=== PATIENT | female | born 1945 | race Caucasian/White ===

== ENCOUNTER 2017-01-27 07:45 | Inpatient (IN) ==
[2017-01-26 11:37] LABS: Basophils # (Auto) 0.1 K/mcL (0.0-0.3); Basophils % (Auto) 0.8 % (0.0-2.0); Eosinophils # (Auto) 0.5 K/mcL (0.0-0.7); Eosinophils % (Auto) 5.5 % (0.0-7.0); Granulocytes % (Auto) 62.4 % (38.0-78.0); Lymphocytes # (Auto) 2.3 K/mcL (1.5-4.8); Lymphocytes % (Auto) 24.9 % (15.5-49.0); Mean Cell Volume 96.7 fL (80.0-100.0); Mean Corpuscular HGB Conc 33.9 g/dL (31.0-36.0); Mean Corpuscular Hemoglobin 32.8 pg (26.0-34.0); Monocytes # (Auto) 0.6 K/mcL (0.1-0.9); Monocytes % (Auto) 6.4 % (1.0-12.0); Platelet Count 345 K/mcL (140-440); RBC 4.12 M/mcL (4.00-5.20); Red Cell Distribution Width 12.8 % (11.5-14.5)
[2017-01-26 11:51] LABS: Blood Urea Nitrogen 14 mg/dl (8-23)
[2017-01-26 12:21] LABS: Appearance,Urine CLEAR; Bacteria,Urine 0 /hpf (0); Bilirubin,Urine NEG (NEG); Color,Urine YELLOW; Glucose,Urine (UA) NEGATIVE (NEG); Leukocyte Esterase,Urine 25 /uL (NEG); Mucus,Urine FEW /hpf (0); Nitrate,Urine NEG (NEG); Protein,Urine NEG (NEG); Specific Gravity,Urine 1.008 (1.000-1.035); Urine Blood NEG mg/dL (<0.03); Urine RBC < 1 /hpf (0-1); Urine Squamous Epithelial Cell < 1 /hpf (0-4); Urine Transitional Epi Cells < 1 /hpf (0-2); Urine WBC 4 /hpf (0-4); Urobilinogen,Urine NEG (NEG)
[~2017-01-27 07:45] MED LIST: KETOROLAC 30 MG, ROPIVACAINE HCL/PF 49.5 ML, EPINEPHrine 0.5 MG, 0.9 % SODIUM CHLORIDE ... IJ SCH; ceFAZolin 1 GM VIAL IV SCH
[2017-01-27] MEDS ORDERED: TRANEXAMIC ACID 1,000 MG/10 ML VIAL IV ONE ×2 (14:00→16:00)
[2017-01-27] MEDS ORDERED: PROPOFOL 200 MG/20 ML VIAL IV ONE (14:00)
[2017-01-27] MEDS ORDERED: ROPIVACAINE HCL/PF 30 ML VIAL IJ ONE (14:00)
[2017-01-27] MEDS ORDERED: PHENYLEPHRINE 10 MG/ML VIAL IV ONE (14:00)
[2017-01-27] MEDS ORDERED: DEXAMETHASONE 10 MG/ML VIAL IV ONE (14:00)
[2017-01-27] MEDS ORDERED: LIDOCAINE HCL/PF 100 MG/5 ML SYRINGE IV ONE (14:00)
[2017-01-27] MEDS ORDERED: ONDANSETRON 4 MG/2 ML VIAL IV ONE (14:00)
[2017-01-27] MEDS ORDERED: MIDAZOLAM 5 MG/5 ML VIAL IV ONE (14:00)
[2017-01-27] MEDS ORDERED: GENTAMICIN SULFATE 800 MG/20 ML VIAL IR ONE (14:39)
[2017-01-27] MEDS ORDERED: NALOXONE HCL 0.4 MG/ML VIAL IV PRN (15:41)
[2017-01-27] MEDS ORDERED: ONDANSETRON 4 MG/2 ML VIAL IV PRN ×2 (15:41→16:00)
[2017-01-27] MEDS ORDERED: FLUMAZENIL 0.1 MG/ML ML IV PRN (15:41)
[2017-01-27] MEDS ORDERED: LACTATED RINGERS 250 ML IV PRN (15:41)
[2017-01-27] MEDS ORDERED: ACETAMINOPHEN 1,000 MG/100 ML BOTTLE IV ONE (15:41)
[2017-01-27] MEDS ORDERED: IPRATROPIUM/ALBUTEROL 3 ML AMPUL.NEB NEB PRN (15:41)
[2017-01-27] MEDS ORDERED: MEPERIDINE 25 MG/ML SYRINGE IV PRN (15:41)
[2017-01-27] MEDS ORDERED: fentaNYL 100 MCG/2 ML VIAL IV PRN (15:41)
[2017-01-27] MEDS ORDERED: METHOCARBAMOL 1,000 MG/10 ML VIAL IV PRN (15:41)
[2017-01-27] MEDS ORDERED: BENZOCAINE/MENTHOL 1 LOZENGE PO PRN ×2 (15:41→16:00)
[2017-01-27] MEDS ORDERED: diphenhydrAMINE 50 MG/ML VIAL IV PRN (15:41)
[2017-01-27] MEDS ORDERED: LACTATED RINGERS 1,000 ML IV SCH (15:45)
[2017-01-27] MEDS ORDERED: POLYETHYLENE GLYCOL 3350 17 GM PACKET PO PRN (16:00)
--- NOTE | 2017-01-27 16:12 | Brief Operative Note ---
Date of procedure: 01/27/17 Pre-op diagnosis: RA left vknee Post-op diagnosis: same Procedure: L TKR PS attune with revision tibial base plate Grafts/Implants: Yes (see above) Anesthesia: GETA Complications: none Surgeon: Beny Mariano Special Delivery Mail Carrier: Cesar Muhammad Estimated blood loss (cc): 250 Tourniquet Time (Minutes): 78 Specimens Removed/Pathology: other (synovial bx) Condition: stable Disposition: PACU
[2017-01-27] MEDS: 0.9 % SODIUM CHLORIDE 1,000 ML IV SCH (17:00)
--- NOTE | 2017-01-27 17:02 | XRay Report ---
HISTORY: Reason for Exam:Post-op total knee FINDINGS: There is a well positioned total knee prosthesis. There are small clusters of bone chips seen on the AP view along both medial and lateral sides of the knee near the prosthetic tibial plateau. There is no evidence of a fracture. IMPRESSION: Well-positioned knee prosthesis Interpreted and Authenticated by: Jimenez Jernigan 01/27/17
[2017-01-27] MEDS: HYDROmorphone 2 MG/ML SYRINGE IV PRN ×3 (19:21→23:55)
[2017-01-27] MEDS: sulfaSALAzine 500 MG TABLET PO SCH (21:30)
[2017-01-27] MEDS: DOCUSATE SODIUM 100 MG CAPSULE PO SCH (21:37)
[2017-01-27] MEDS: amLODIPine 10 MG TABLET PO SCH (21:39)
[2017-01-27] MEDS: BACLOFEN 10 MG TABLET PO SCH (21:39)
[2017-01-27] MEDS: CYCLOBENZAPRINE 10 MG TABLET PO SCH (21:39)
[2017-01-27] MEDS: rOPINIRole 1 MG TABLET PO SCH (21:39)
[2017-01-27] MEDS: ENOXAPARIN 30 MG/0.3 ML SYRINGE SQ SCH (21:40)
[2017-01-27] MEDS: PREGABALIN 75 MG CAPSULE PO SCH (21:42)
[2017-01-27] MEDS: ceFAZolin 1 GM VIAL IV SCH (21:43)
[2017-01-27] MEDS: 0.9 % SODIUM CHLORIDE 10 ML SYRINGE IV SCH (21:43)
[2017-01-27] MEDS: morphine 15 MG TABLET PO PRN (21:57)
[2017-01-28] MEDS: HYDROmorphone 2 MG/ML SYRINGE IV PRN ×4 (04:24→19:58)
[2017-01-28] MEDS: morphine 15 MG TABLET PO PRN ×4 (04:24→17:57)
[2017-01-28] MEDS: 0.9 % SODIUM CHLORIDE 1,000 ML IV SCH ×2 (04:28→12:33)
[2017-01-28] MEDS: ceFAZolin 1 GM VIAL IV SCH (06:51)
[2017-01-28] MEDS: LEVOTHYROXINE 88 MCG TABLET PO SCH (06:51)
[2017-01-28] MEDS: 0.9 % SODIUM CHLORIDE 10 ML SYRINGE IV SCH ×3 (06:54→21:00)
--- NOTE | 2017-01-28 07:36 | Orthopedic Progress Note ---
Subjective Patient information: Note initiated : 01/28/17 at 7:34 am Service Date, if different from initiated Date: [] Patient: Soumya Montgomery 71 y/o F admitted on 01/27/17 for Left Total Knee Arthroplasty. Chief Complaint: [] Principal diagnosis: L knee arthritis POD1 Objective Vital signs: Vital Signs Temp Pulse Pulse Pulse Resp BP BP 01/28/17 07:20 95 H 01/28/17 07:13 98.4 F 93 H 16 134/72 01/28/17 04:00 98.0 F 87 12 110/61 01/27/17 23:35 97.4 F 96 H 12 103/56 01/27/17 19:58 97.7 F 91 H 12 138/75 01/27/17 18:58 86 132/82 01/27/17 18:38 82 140/83 01/27/17 18:08 80 139/83 01/27/17 17:53 82 129/77 01/27/17 17:38 90 144/100 01/27/17 17:20 97.7 F 18 148/89 01/27/17 17:05 86 16 144/74 01/27/17 17:02 97.4 F 86 16 137/82 01/27/17 17:00 81 16 137/82 01/27/17 16:55 82 16 150/82 01/27/17 16:50 82 18 133/77 01/27/17 16:45 86 20 130/84 01/27/17 16:40 83 14 127/73 01/27/17 16:35 15 124/71 01/27/17 16:30 20 122/66 01/27/17 16:25 98.1 F 84 12 124/71 01/27/17 12:00 98.2 F 16 171/81 01/27/17 08:00 98.0 F 101 H 14 138/82 01/27/17 07:45 98.0 F 101 H 14 138/82 Pulse Ox 01/28/17 07:20 94 01/28/17 07:13 92 01/28/17 04:00 91 01/27/17 23:35 93 01/27/17 19:58 96 01/27/17 18:58 94 01/27/17 18:38 96 01/27/17 18:08 96 01/27/17 17:53 07/25/17 17:38 01/27/17 17:20 95 01/27/17 17:05 95 01/27/17 17:02 01/27/17 17:00 95 01/27/17 16:55 94 01/27/17 16:50 94 01/27/17 16:45 95 01/27/17 16:40 93 01/27/17 16:35 96 01/27/17 16:30 98 01/27/17 16:25 01/27/17 12:00 94 01/27/17 08:00 01/27/17 07:45 95 Intake and Output 01/27/17 01/28/17 01/28/17 21:59 05:59 13:59 Intake Total 2099 / 2099 1490 / 1490 Output Total 675 / 675 53 / 53 Balance 1425 / 1425 1437 / 1437 Intake: IV 2099 / 2099 1000 / 1000 Sodium Chloride 0.9% 1, 1000 / 1000 000 ml @ 100 mls/hr IV . Q10H NORY Rx#:[id number] Lactated Ringers 1,000 ml 2000 / 2000 @ 20 mls/hr IV .Q24H NORY Rx#:[id number] Oral 490 / 490 Output: Drainage 53 / 53 Left Knee 53 / 53 Void Amount 525 / 525 Estimated Blood Loss 150 / 150 Other: Weight 281 lb Intake & Output: Intake & Output 01/27/17 01/28/17 01/28/17 21:59 05:59 13:59 Intake Total 2099 / 2099 1490 / 1490 Output Total 675 / 675 53 / 53 Balance 1425 / 1425 1437 / 1437 Weight 281 lb Intake: IV 2099 / 2099 1000 / 1000 Sodium Chloride 0.9% 1, 1000 / 1000 000 ml @ 100 mls/hr IV . Q10H NORY Rx#:[id number] Lactated Ringers 1,000 ml 2000 / 2000 @ 20 mls/hr IV .Q24H NORY Rx#:[id number] Oral 490 / 490 Output: Drainage 53 / 53 Left Knee 53 / 53 Void Amount 525 / 525 Estimated Blood Loss 150 / 150 Incision clean and dry: Yes Weight bearing status: as tolerated - Periperhal Pulses Peripheral pulses: 2+: dorsalis pedis (L) - Diagnostic Results Knee x-ray: image reviewed (well positioned TKR) - Labs CBC & BMP: 07/26/17 04:42 01/26/17 09:35 Labs: Orthopedic Labs 01/26/17 09:36 PT 13.0 INR 1.0 01/28/17 01/26/17 04:42 09:36 Hgb 10.5 L 13.5 Hct 31.1 L 39.8 Assessment and Plan (1) Total knee replacement status doing well . continue PT and lovenox Status: Acute
[2017-01-28] MEDS: DOCUSATE SODIUM 100 MG CAPSULE PO SCH ×2 (09:06→20:57)
[2017-01-28] MEDS: CYCLOBENZAPRINE 10 MG TABLET PO SCH ×2 (09:06→20:56)
[2017-01-28] MEDS: BACLOFEN 10 MG TABLET PO SCH ×2 (09:06→20:56)
[2017-01-28] MEDS: PREGABALIN 150 MG CAPSULE PO SCH (09:06)
[2017-01-28] MEDS: LOSARTAN 50 MG TABLET PO SCH (09:07)
[2017-01-28] MEDS: buPROPion 150 MG TAB.XL.24H PO SCH (09:07)
[2017-01-28] MEDS: sulfaSALAzine 500 MG TABLET PO SCH ×2 (09:07→20:57)
[2017-01-28] MEDS: DULoxetine 30 MG CAPSULE PO SCH (09:07)
[2017-01-28] MEDS: ENOXAPARIN 30 MG/0.3 ML SYRINGE SQ SCH ×2 (09:08→20:59)
[2017-01-28] MEDS: TRIAMTERENE/HYDROCHLOROTHIAZID 1 TABLET PO SCH (09:10)
[2017-01-28] MEDS: CALCIUM CARB PO SCH (09:10)
[2017-01-28] MEDS: MAG OX PO SCH (09:10)
[2017-01-28] MEDS: ZINC SULF PO SCH (09:10)
--- NOTE | 2017-01-28 13:45 | Surgical Pathology Report ---
HISTOLOGY SPECIMEN MICROSCOPIC DIAGNOSIS SYNOVIUM, LEFT KNEE, BIOPSY: -- CHRONIC SYNOVITIS, MILD. (DMT:berta) PROCEDURAL IMPRESSION Left knee arthritis. GROSS DESCRIPTION Received in formalin labeled left knee synovial, are two fragments of fibrous yellow-desouza to pink-desouza fatty tissue ranging in size from 2.0 x 1.9 x 0.6 cm up to 4.5 x 0.9 x 0.5 cm. The fragments are serially sectioned with credit and collections representative sections submitted - one cassette. (KGW:berta) Electronically Signed by: Jerald Bello M.D.
[2017-01-28] MEDS ORDERED: oxyCODONE 10 MG TAB.ER.12H PO ONE (14:30)
[2017-01-28] MEDS ORDERED: oxyCODONE 10 MG TAB.ER.12H PO SCH (14:30)
[2017-01-28] MEDS: amLODIPine 10 MG TABLET PO SCH (20:55)
[2017-01-28] MEDS: rOPINIRole 1 MG TABLET PO SCH (20:55)
[2017-01-28] MEDS: PREGABALIN 75 MG CAPSULE PO SCH (20:58)
[2017-01-28] MEDS: oxyCODONE 10 MG TAB.ER.12H PO SCH (23:40)
[2017-01-29] MEDS: morphine 15 MG TABLET PO PRN ×4 (04:08→18:52)
--- NOTE | 2017-01-29 06:54 | Orthopedic Progress Note ---
Subjective Patient information: Note initiated : 01/29/17 at 6:52 am Service Date, if different from initiated Date: [] Patient: Soumya Montgomery 71 y/o F admitted on 01/27/17 for Left Total Knee Arthroplasty. Chief Complaint: [] Principal diagnosis: L knee arthritis POD1 Interval history: slow in ambulating Objective Vital signs: Vital Signs Temp Pulse Pulse Resp BP Pulse Ox 01/29/17 04:00 98.0 F 108 H 16 189/72 91 01/28/17 23:58 98.8 F 112 H 16 171/73 91 01/28/17 19:04 99.2 F H 119 H 16 157/74 90 01/28/17 16:00 98.1 F 20 148/74 93 01/28/17 12:00 98.5 F 113 H 16 151/84 90 01/28/17 08:15 93 H 01/28/17 07:20 95 H 94 01/28/17 07:15 93 H 16 94 01/28/17 07:13 98.4 F 93 H 16 134/72 92 Intake and Output 01/28/17 01/29/17 01/29/17 21:59 05:59 13:59 Intake Total 1000 / 1000 200 / 200 Output Total 250 / 250 868 / 868 Balance 750 / 750 -668 / -668 Intake: IV 1000 / 1000 Sodium Chloride 0.9% 1, 1000 / 1000 000 ml @ 100 mls/hr IV . Q10H NORY Rx#:[id number] Oral 200 / 200 Output: Drainage 18 18 Left Knee 18 18 Void Amount 250 / 250 850 / 850 Other: # Bowel Movements 0 Weight 285 lb Intake & Output: Intake & Output 01/28/17 01/29/17 01/29/17 21:59 05:59 13:59 Intake Total 1000 / 1000 200 / 200 Output Total 250 / 250 868 / 868 Balance 750 / 750 -668 / -668 Weight 285 lb Intake: IV 1000 / 1000 Sodium Chloride 0.9% 1, 1000 / 1000 000 ml @ 100 mls/hr IV . Q10H NORY Rx#:[id number] Oral 200 / 200 Output: Drainage 18 / 18 Left Knee 18 18 Void Amount 250 / 250 850 / 850 Other: # Bowel Movements 0 Dressing: Yes clean, Yes dry, Yes intact Weight bearing status: full Neurological exam IM: Yes motor sensory intact - Labs CBC & BMP: 01/29/17 04:49 01/26/17 09:35 Labs: Orthopedic Labs 01/26/17 09:36 PT 13.0 INR 1.0 01/29/17 01/28/17 01/26/17 04:49 04:42 09:36 Hgb 10.4 L 10.5 L 13.5 Hct 30.8 L 31.1 L 39.8 Assessment and Plan (1) Total knee replacement status doing OK, trouble walking. continue PT and lovenox Status: Acute
[2017-01-29] MEDS: LEVOTHYROXINE 88 MCG TABLET PO SCH (07:05)
[2017-01-29] MEDS: 0.9 % SODIUM CHLORIDE 10 ML SYRINGE IV SCH ×3 (07:07→20:55)
[2017-01-29] MEDS: buPROPion 150 MG TAB.XL.24H PO SCH (09:46)
[2017-01-29] MEDS: LOSARTAN 50 MG TABLET PO SCH (09:47)
[2017-01-29] MEDS: DULoxetine 30 MG CAPSULE PO SCH (09:47)
[2017-01-29] MEDS: BACLOFEN 10 MG TABLET PO SCH ×2 (09:52→20:52)
[2017-01-29] MEDS: CYCLOBENZAPRINE 10 MG TABLET PO SCH ×2 (09:53→20:53)
[2017-01-29] MEDS: DOCUSATE SODIUM 100 MG CAPSULE PO SCH ×2 (09:54→20:52)
[2017-01-29] MEDS: PREGABALIN 150 MG CAPSULE PO SCH (09:55)
[2017-01-29] MEDS: ENOXAPARIN 30 MG/0.3 ML SYRINGE SQ SCH ×2 (09:55→20:54)
[2017-01-29] MEDS: oxyCODONE 10 MG TAB.ER.12H PO SCH ×2 (09:56→20:53)
[2017-01-29] MEDS: sulfaSALAzine 500 MG TABLET PO SCH ×2 (09:56→20:54)
[2017-01-29] MEDS: TRIAMTERENE/HYDROCHLOROTHIAZID 1 TABLET PO SCH (09:58)
[2017-01-29] MEDS: CALCIUM CARB PO SCH (10:02)
[2017-01-29] MEDS: MAG OX PO SCH (10:02)
[2017-01-29] MEDS: ZINC SULF PO SCH (10:02)
[2017-01-29] MEDS: rOPINIRole 1 MG TABLET PO SCH (20:52)
[2017-01-29] MEDS: amLODIPine 10 MG TABLET PO SCH (20:53)
[2017-01-29] MEDS: PREGABALIN 75 MG CAPSULE PO SCH (20:53)
[2017-01-30] MEDS: 0.9 % SODIUM CHLORIDE 10 ML SYRINGE IV SCH (08:53)
[2017-01-30] MEDS: LEVOTHYROXINE 88 MCG TABLET PO SCH (08:54)
[2017-01-30] MEDS: buPROPion 150 MG TAB.XL.24H PO SCH (08:54)
[2017-01-30] MEDS: LOSARTAN 50 MG TABLET PO SCH (08:54)
[2017-01-30] MEDS: BACLOFEN 10 MG TABLET PO SCH (08:55)
[2017-01-30] MEDS: DULoxetine 30 MG CAPSULE PO SCH (08:55)
[2017-01-30] MEDS: oxyCODONE 10 MG TAB.ER.12H PO SCH (08:56)
[2017-01-30] MEDS: ZINC SULF PO SCH (08:57)
[2017-01-30] MEDS: PREGABALIN 150 MG CAPSULE PO SCH (08:57)
[2017-01-30] MEDS: DOCUSATE SODIUM 100 MG CAPSULE PO SCH (08:57)
[2017-01-30] MEDS: sulfaSALAzine 500 MG TABLET PO SCH (08:57)
[2017-01-30] MEDS: CYCLOBENZAPRINE 10 MG TABLET PO SCH (08:57)
[2017-01-30] MEDS: CALCIUM CARB PO SCH (08:57)
[2017-01-30] MEDS: MAG OX PO SCH (08:57)
[2017-01-30] MEDS: TRIAMTERENE/HYDROCHLOROTHIAZID 1 TABLET PO SCH (08:58)
[2017-01-30] MEDS: ENOXAPARIN 30 MG/0.3 ML SYRINGE SQ SCH (08:58)
[2017-01-30] MEDS: morphine 15 MG TABLET PO PRN (09:54)
== END 2017-01-30 13:50 | DRG 470 ==
LOC: MEDSUR 07:45 → EDSTATUS 10:30 → MEDSUR 16:33
PROVIDERS: ADMIT Orthopaedic Surgery Foot and Ankle Surgery; ATTEND Orthopaedic Surgery Foot and Ankle Surgery

== ENCOUNTER 2017-11-11 08:21 | Inpatient (IN) ==
[2017-11-06 16:28] LABS: Appearance,Urine CLEAR; Bacteria,Urine 0 /hpf (0); Bilirubin,Urine NEG (NEG); Color,Urine YELLOW; Glucose,Urine (UA) NEGATIVE (NEG); Leukocyte Esterase,Urine 500 /uL (NEG); Protein,Urine 30 mg/dL (NEG); Specific Gravity,Urine 1.016 (1.000-1.035); Urine Blood NEG mg/dL (<0.03); Urine RBC 3 /hpf (0-1); Urine Squamous Epithelial Cell 7 /hpf (0-4); Urine Transitional Epi Cells 3 /hpf (0-2); Urine WBC 81 /hpf (0-4); Urobilinogen,Urine NEG (NEG)
[2017-11-06 17:49] LABS: Basophils # (Auto) 0.1 K/mcL (0.0-0.3); Basophils % (Auto) 0.7 % (0.0-2.0); Eosinophils # (Auto) 0.8 K/mcL (0.0-0.7); Eosinophils % (Auto) 7.8 % (0.0-7.0); Granulocytes % (Auto) 53.8 % (38.0-78.0); Lymphocytes # (Auto) 2.8 K/mcL (1.5-4.8); Lymphocytes % (Auto) 28.6 % (15.5-49.0); Mean Cell Volume 97.4 fL (80.0-100.0); Mean Corpuscular HGB Conc 33.5 g/dL (31.0-36.0); Mean Corpuscular Hemoglobin 32.7 pg (26.0-34.0); Monocytes # (Auto) 0.9 K/mcL (0.1-0.9); Monocytes % (Auto) 9.1 % (1.0-12.0); Platelet Count 318 K/mcL (140-440); RBC 4.26 M/mcL (4.00-5.20); Red Cell Distribution Width 13.2 % (11.5-14.5)
[2017-11-06 17:58] LABS: Blood Urea Nitrogen 15 mg/dl (8-23)
[~2017-11-11 08:21] MED LIST changes: +CELECOXIB 200 MG CAPSULE PO SCH; -KETOROLAC 30 MG, ROPIVACAINE HCL/PF 49.5 ML, EPINEPHrine 0.5 MG, 0.9 % SODIUM CHLORIDE ... IJ SCH; +PREGABALIN 150 MG CAPSULE PO SCH; +oxyCODONE 10 MG TAB.ER.12H PO SCH
[2017-11-11 10:40] LABS: Appearance,Urine HAZY; Bacteria,Urine 0 /hpf (0); Bilirubin,Urine NEG (NEG); Color,Urine YELLOW; Glucose,Urine (UA) NEGATIVE (NEG); Leukocyte Esterase,Urine 250 /uL (NEG); Mucus,Urine FEW /hpf (0); Protein,Urine 100 mg/dL (NEG); Urine Blood NEG mg/dL (<0.03); Urine RBC 6 /hpf (0-1); Urine Squamous Epithelial Cell 5 /hpf (0-4); Urine WBC 37 /hpf (0-4)
[2017-11-11] MEDS ORDERED: MIDAZOLAM 5 MG/5 ML VIAL IV ONE (11:40)
[2017-11-11] MEDS ORDERED: PROPOFOL 200 MG/20 ML VIAL IV ONE (11:40)
[2017-11-11] MEDS ORDERED: ePHEDrine 50 MG/ML AMPUL IV ONE (11:40)
[2017-11-11] MEDS ORDERED: DEXAMETHASONE 10 MG/ML VIAL IV ONE (11:40)
[2017-11-11] MEDS ORDERED: SUCCINYLCHOLINE 20 MG/ML ML IV ONE (11:40)
[2017-11-11] MEDS ORDERED: fentaNYL 250 MCG/5 ML VIAL IV ONE (11:40)
[2017-11-11] MEDS ORDERED: ROCURONIUM 10 MG/ML ML IV ONE (11:40)
[2017-11-11] MEDS ORDERED: TRANEXAMIC ACID 1,000 MG/10 ML VIAL IV ONE ×2 (11:40→13:32)
[2017-11-11] MEDS ORDERED: METOPROLOL TARTRATE 5 MG/5 ML VIAL IV ONE (11:40)
[2017-11-11] MEDS ORDERED: NEOSTIGMINE 1 MG/ML VIAL IV ONE (11:40)
[2017-11-11] MEDS ORDERED: KETAMINE 100 MG/ML ML IV ONE (11:40)
[2017-11-11] MEDS ORDERED: LIDOCAINE HCL/PF 100 MG/5 ML SYRINGE IV ONE (11:40)
[2017-11-11] MEDS ORDERED: GLYCOPYRROLATE 0.2 MG/ML VIAL IV ONE (11:40)
[2017-11-11] MEDS ORDERED: BUPIVACAINE W/EPI 0.5% 50 ML VIAL IJ ONE (13:31)
[2017-11-11] MEDS ORDERED: HYDROmorphone 2 MG/ML VIAL IV PRN ×2 (13:32→14:10)
[2017-11-11] MEDS ORDERED: ONDANSETRON 4 MG/2 ML VIAL IV PRN ×2 (13:32→14:10)
[2017-11-11] MEDS ORDERED: FLEETS ADULT ENEMA PR PRN (13:32)
[2017-11-11] MEDS ORDERED: BISACODYL 10 MG SUPP.RECT PR PRN (13:32)
[2017-11-11] MEDS ORDERED: BENZOCAINE/MENTHOL 1 LOZENGE PO PRN (13:32)
[2017-11-11] MEDS ORDERED: POLYETHYLENE GLYCOL 3350 17 GM PACKET PO PRN (13:32)
[2017-11-11] MEDS ORDERED: MAGNESIUM HYDROXIDE 30 ML ORAL.SUSP PO PRN (13:32)
[2017-11-11] MEDS ORDERED: VILANTEROL INH PRN (13:38)
[2017-11-11] MEDS ORDERED: FLUTICASONE INH PRN (13:38)
[2017-11-11] MEDS ORDERED: ACETAMINOPHEN 1,000 MG/100 ML BOTTLE IV ONE (14:10)
[2017-11-11] MEDS ORDERED: KETOROLAC 15 MG/ML VIAL IV PRN (14:10)
[2017-11-11] MEDS ORDERED: IPRATROPIUM/ALBUTEROL 3 ML AMPUL.NEB NEB PRN (14:10)
[2017-11-11] MEDS ORDERED: FLUMAZENIL 0.1 MG/ML ML IV PRN (14:10)
[2017-11-11] MEDS ORDERED: METHOCARBAMOL 1,000 MG/10 ML VIAL IV PRN (14:10)
[2017-11-11] MEDS ORDERED: PROMETHAZINE 25 MG/ML VIAL IV PRN (14:10)
[2017-11-11] MEDS ORDERED: NALOXONE HCL 0.4 MG/ML VIAL IV PRN (14:10)
[2017-11-11] MEDS ORDERED: ATROPINE SULFATE 0.4 MG/ML VIAL IV PRN (14:10)
[2017-11-11] MEDS ORDERED: PROMETHAZINE 25 MG/ML VIAL IM PRN (14:10)
[2017-11-11] MEDS ORDERED: MEPERIDINE 50 MG/ML INJECTION IM PRN (14:10)
[2017-11-11] MEDS ORDERED: METOPROLOL TARTRATE 5 MG/5 ML VIAL IV PRN (14:10)
[2017-11-11] MEDS ORDERED: ePHEDrine 50 MG/ML AMPUL IV PRN (14:10)
--- NOTE | 2017-11-11 14:17 | Operative Note ---
DATE OF OPERATION: 11/11/2017 PREOPERATIVE DIAGNOSIS: Left shoulder severe arthritis with rotator cuff tear. POSTOPERATIVE DIAGNOSIS: Left shoulder severe arthritis with rotator cuff tear. PROCEDURE PERFORMED: Left reverse total shoulder arthroplasty placing a Biomet Comprehensive size 10 mini stem with a +10 baseplate and a standard humeral bearing on a 36 glenosphere and a mini baseplate. SURGEON: Theo Lin M.D. TEAM MEMBER: Jesse Perea PA-C. ANESTHESIA: General. DRAINS: None. SPECIMENS: None. COMPLICATIONS: None. BLOOD LOSS: 150 mL. POSTOPERATIVE CONDITION: Stable. INDICATIONS FOR SURGERY: This is a 71-year-old female who has rheumatoid arthritis who has had longstanding severe left shoulder pain. Radiographs showed severe humeral head deformity with bone loss, and on exam she had what appeared to be an incompetent rotator cuff. FINDINGS AT SURGERY: There was severe synovitis and destruction of her humeral head. Post implantation showed satisfactory stability. PROCEDURE IN DETAIL: The patient had been seen preoperatively. Informed consent had been obtained after discussion of risks and benefits of surgery. Risks including, but not limited to, bleeding; infection, possibly requiring implant removal and prolonged IV antibiotics; injury to nerves, blood vessels, and other surrounding structures; anesthetic risks; incomplete or no resolution of symptoms; dislocation; fracture; possibility of needing further surgery. All of these complications were increased due to her severe obesity with a body mass index of 48.7. She understood these risks and wished to proceed. The correct operative site was marked and then patient was taken to the operating room. General anesthesia was induced. She was carefully positioned in the beach chair position and pressure points carefully padded. Left shoulder and upper extremity were then carefully prepped and draped in normal sterile fashion, and a time-out was performed verifying patient name, operative site, and plan. Ioban was used to cover all skin surfaces and a standard deltopectoral incision was made with scalpel through skin and subcutaneous tissue. Hemostasis was obtained with Bovie cautery and then blunt dissection taken down onto the cephalic vein. Irrisept was irrigated and then we dissected the vein medial as it did not appear to want to dissect lateral with the deltoid. We then used blunt finger dissection and developed subdeltoid space. There was severe synovitis and difficult to even identify normal anatomy. We went ahead and performed a synovectomy and then lesser tuberosity osteotomy was done and a traction suture placed around what remained of the subscapularis. We then started dislocating the humeral head and releasing capsule around inferiorly and at this point verified the severe destruction of the humeral head. A hole was made proximally and then we began hand reaming up to a size 10 and then cut with 30 degrees of retroversion our humeral head cut. We then started broaching up to a 10 and then placed a cut protector. We then subluxed the humerus posteriorly and exposed the glenoid. Again, this was abnormal anatomy. We went ahead and excised labrum circumferentially and then drilled a central pin using a 10 degree upturn guide. We then used the one-step reamer until we were down to cancellous bone on the inferior half. We then placed a mini baseplate after irrigating with Irrisept and saline. We then placed our central screw and then drilled our three locking peripheral screws leaving the anterior screw empty. We went ahead and chose a 36 standard glenosphere, placed in the D-inferiormost offset. This was then impacted. We then retrialed with a standard trial. This was very loose, so we continued increasing thickness until we got to a 10 thickness which gave stability, so we went ahead and removed the trial humeral component. We opened a 10 mini stem. We irrigated the shaft with Irrisept, after a minute we pulse lavaged with saline, and then impacted the stem, and then the baseplate and bearing were impacted together and then impacted onto the stem. Shoulder was reduced. Range of motion checked and was stable. We then went ahead and irrigated with Irrisept again and after a minute pulse lavaged. We repaired the subscap to the implant through the holes anteriorly and then used a #1 Vicryl running stitch for the deltopectoral interval. We irrigated Irrisept again, after a minute pulse lavaged, and then 2-0 Monocryl for subcutaneous and heidi for skin. Xeroform and sterile dressing were applied. A shoulder immobilizer was placed, and the patient was awakened, extubated, and transferred to recovery in stable condition. LILLIAN:leonardo Job ID: [id number] Doc ID: [id number] Theo Lin MD
[2017-11-11] MEDS: fentaNYL 100 MCG/2 ML VIAL IV PRN ×3 (14:24→14:45)
--- NOTE | 2017-11-11 14:50 | XRay Report ---
CLINICAL INFORMATION: Reason for Exam:Post-Op Total Shoulder COMPARISON: None. FINDINGS: Total shoulder prostheses is anatomically aligned. No osseous abnormality. Soft tissues swelling seen as expected. IMPRESSION: Negative Interpreted and Authenticated by: Vik Angeles 11/11/17
[2017-11-11] MEDS: 0.9 % SODIUM CHLORIDE 10 ML SYRINGE IV SCH ×2 (15:22→21:32)
[2017-11-11] MEDS: 0.9 % SODIUM CHLORIDE 1,000 ML IV SCH ×3 (15:37→22:20)
[2017-11-11] MEDS: oxyCODONE/APAP 5/325MG TABLET PO PRN ×2 (17:02→22:19)
[2017-11-11] MEDS: ceFAZolin 1 GM VIAL IV SCH (20:23)
[2017-11-11] MEDS: BACLOFEN 10 MG TABLET PO SCH (20:29)
[2017-11-11] MEDS: oxyCODONE 10 MG TAB.ER.12H PO SCH (20:29)
[2017-11-11] MEDS: DOCUSATE SODIUM 100 MG CAPSULE PO SCH (20:29)
[2017-11-11] MEDS: CYCLOBENZAPRINE 10 MG TABLET PO SCH (20:29)
[2017-11-11] MEDS ORDERED: amLODIPine 10 MG TABLET PO SCH (21:00)
[2017-11-11] MEDS ORDERED: SENNOSIDES 1 TABLET PO SCH (21:00)
[2017-11-11] MEDS ORDERED: PREGABALIN 75 MG CAPSULE PO SCH (21:00)
[2017-11-11] MEDS ORDERED: rOPINIRole 1 MG TABLET PO SCH (21:00)
[2017-11-12] MEDS: ceFAZolin 1 GM VIAL IV SCH (03:17)
[2017-11-12] MEDS: oxyCODONE/APAP 5/325MG TABLET PO PRN ×2 (05:27→11:23)
[2017-11-12] MEDS: 0.9 % SODIUM CHLORIDE 1,000 ML IV SCH (05:27)
[2017-11-12] MEDS: 0.9 % SODIUM CHLORIDE 10 ML SYRINGE IV SCH (06:12)
[2017-11-12] MEDS ORDERED: LEVOTHYROXINE 88 MCG TABLET PO SCH (07:30)
--- NOTE | 2017-11-12 07:42 | Discharge Summary ---
Providers - Providers Patient information: Note initiated : 11/12/17 at 7:40 am Service Date, if different from initiated Date: [] Patient: Soumya Montgomery 71 y/o F admitted on 11/11/17 for Left Reverse Total Shoulder Arthroplaty with Bicep. Chief Complaint: [] Discharge date: 11/12/17 Hospitalization Hospital course: Pt was admitted for a reverse total shoulder arthroplasty. Pt was admitted on the day of the procedure and transfered to the floor for IV pain meds, IV abx and PT. Pt discharged on post-op day 1. Was given appropriate pain meds. Will attend out-pt PT and f/u at [facility] in 2 weeks. Discharge diagnosis: L Shoulder osteoarthrosis Exam - Exam Clean and dry: Yes Weight bearing status: none Ortho Discharge - TSA - Patient Instructions Diet: Regular Diet Activity: activity as tolerated Total Shoulder Protocol: Leave immobilizer in place except for bathing and ROM. Abduction pillow. Continue to wear sling until seen by physician. Codman Pendulum : These exercises use momentum produced by your body to move your shoulder joint. Bend your knees and shift your weight to your front leg, then back, allowing your arm to swing in the same directions. Using the same technique, alternately shift your weight between your right and left legs, allowing your arm to swing from side to side. These exercises are also performed in counterclockwise and clockwise circular motions. Typically these exercises are performed several times per day, for a set number repetitions or minutes, such as 20 times in a row or 5 minutes at a time. Dressing Care: May shower in 2 days - Follow Up Plan Follow Up Appointments: Julius Perea PA-C [Physician Public Relations Supervisor] - 11/26/17 2:20 pm Disposition: Home, Self-Care Prognosis: Good Rehab Potential: Good Overall status at discharge: patient is progressing back to baseline - Orders For Discharge Prescriptions: HYDROcodone/APAP 10/325MG [[place] 10-325Mg] 1 - 2 tab PO Q4H PRN #75 tab PRN Reason: Pain Pending Studies Resuscitation Status Full Code Diet Consistent Carbohydrate Diet Start Katerine November 12 0704 Amlodipine Besylate (Norvasc) 10 mg PO HS NORY Last Admin: 11/11/17 20:29 Dose: 10 mg Baclofen (Lioresal) 10 mg PO BID NORY Last Admin: 11/11/17 20:29 Dose: 10 mg Cyclobenzaprine HCl (Flexeril) 10 mg PO BID [facility] Last Admin: 11/11/17 20:29 Dose: 10 mg Docusate Sodium (Colace) 100 mg PO BID [facility] Last Admin: 11/11/17 20:29 Dose: 100 mg Hydromorphone HCl (Dilaudid) 0 mg IV Q2HP PRN PRN Reason: PAIN LEVEL > 6 Last Admin: 11/11/17 17:01 Dose: 0.5 mg Sodium Chloride (Sodium Chloride 0.9%) 1,000 mls @ 125 mls/hr IV .Q8H [facility] Last Admin: 11/12/17 05:27 Dose: Not Given Admin: 11/11/17 22:20 Dose: 125 mls/hr Infusion: 11/11/17 22:20 Dose: 125 mls/hr Admin: 11/11/17 22:03 Dose: Not Given Admin: 11/11/17 15:37 Dose: 125 mls/hr Levothyroxine Sodium (Synthroid) 88 mcg PO QAMAC [facility] Last Admin: 11/12/17 06:58 Dose: 88 mcg Oxycodone HCl (Oxycontin) 10 mg PO BID [facility] Last Admin: 11/11/17 20:29 Dose: 10 mg Oxycodone/Acetaminophen (Percocet 5-325 Mg) 0 tab PO Q4HP PRN PRN Reason: PAIN LEVEL 3-6 Last Admin: 11/12/17 05:27 Dose: 2 tab Admin: 11/11/17 22:19 Dose: 2 tab Admin: 11/11/17 17:02 Dose: 2 tab Diclofenac 75 Mg Tab 1 dose PO BID [facility] Last Admin: 11/11/17 21:23 Dose: Not Given Pregabalin (Lyrica) 75 mg PO HS [facility] Last Admin: 11/11/17 20:29 Dose: 75 mg Ropinirole HCl (Requip) 1 mg PO [facility] Last Admin: 11/11/17 20:29 Dose: 1 mg Senna (Senokot) 2 tab PO HS [facility] Last Admin: 11/11/17 20:28 Dose: 2 tab Sodium Chloride (Saline Flush) 10 ml IV Q8 [facility] Last Admin: 11/12/17 06:12 Dose: 10 ml Admin: 11/11/17 21:32 Dose: Not Given Admin: 11/11/17 15:22 Dose: Not Given Shift Summary 11/12/17 04:44 Shift Summary by Tico Eldridge Shoulder immobilizer in place to left shoulder. Dressing CDI. Shadow drainage noted and circled by maye, no new drainage noted. CMS intact. Minimal complaints of pain. Received 2 tabs Percocet x1 this shift. Uses IS up to 2, 000. Ambulates to BSC w/SBA. Steady on feet. Tolerating diet well w/ no complaints of N/V. SCD's in place. Wears CPAP at night. Does not wear O2 t/o day at home. IV to RFA running NS @ 125mL/hr. Initialized on 11/12/17 04:44 - END OF NOTE
[2017-11-12] MEDS ORDERED: TRIAMTERENE/HYDROCHLOROTHIAZID 1 TABLET PO SCH (09:00)
[2017-11-12] MEDS ORDERED: ZINC SULF PO SCH (09:00)
[2017-11-12] MEDS ORDERED: PREGABALIN 150 MG CAPSULE PO SCH (09:00)
[2017-11-12] MEDS ORDERED: GINGER ROOT 250 MG PO SCH (09:00)
[2017-11-12] MEDS ORDERED: MULTIVIT,THER IRON,CA,FA & MIN 1 TABLET PO SCH (09:00)
[2017-11-12] MEDS ORDERED: CALCIUM CARB PO SCH (09:00)
[2017-11-12] MEDS ORDERED: LOSARTAN 50 MG TABLET PO SCH (09:00)
[2017-11-12] MEDS ORDERED: VITAMIN D3 1,000 UNIT TABLET PO SCH (09:00)
[2017-11-12] MEDS ORDERED: buPROPion 150 MG TAB.XL.24H PO SCH (09:00)
[2017-11-12] MEDS ORDERED: MAG OX PO SCH (09:00)
[2017-11-12] MEDS ORDERED: DULoxetine 30 MG CAPSULE PO SCH (09:00)
[2017-11-12] MEDS: BACLOFEN 10 MG TABLET PO SCH (09:38)
[2017-11-12] MEDS: DOCUSATE SODIUM 100 MG CAPSULE PO SCH (09:39)
[2017-11-12] MEDS: CYCLOBENZAPRINE 10 MG TABLET PO SCH (09:40)
[2017-11-12] MEDS: oxyCODONE 10 MG TAB.ER.12H PO SCH (09:41)
== END 2017-11-12 13:51 | disposition home or self-care (01) | DRG 483 ==
LOC: MEDSUR 08:21
PROVIDERS: ADMIT Orthopaedic Surgery; ATTEND Orthopaedic Surgery

== ENCOUNTER 2018-12-22 14:00 | Inpatient (IN) ==
[2018-12-22 17:05] LABS: Basophils # (Auto) 0.1 K/mcL (0.0-0.3); Basophils % (Auto) 0.9 % (0.0-2.0); Eosinophils # (Auto) 0.6 K/mcL (0.0-0.7); Eosinophils % (Auto) 6.1 % (0.0-7.0); Granulocytes % (Auto) 65.7 % (38.0-78.0); Hematocrit 41.3 % (36.0-48.0); Hemoglobin 13.6 g/dL (12.0-15.0); Lymphocytes # (Auto) 1.9 K/mcL (1.5-4.8); Lymphocytes % (Auto) 20.9 % (15.5-49.0); Mean Cell Volume 97.4 fL (80.0-100.0); Mean Corpuscular HGB Conc 32.8 g/dL (31.0-36.0); Mean Platelet Volume 8.8 fL (7.4-10.4); Monocytes # (Auto) 0.6 K/mcL (0.1-0.9); Monocytes % (Auto) 6.4 % (1.0-12.0); Platelet Count 319 K/mcL (140-440); RBC 4.24 M/mcL (4.00-5.20); Red Cell Distribution Width 12.9 % (11.5-14.5); WBC 9.2 K/mcL (4.5-11.0)
[2018-12-22 17:20] LABS: Blood Urea Nitrogen 22 mg/dl (8-23); Calcium 9.6 mg/dl (8.6-10.4); Carbon Dioxide 24 mmol/L (22-30); Chloride 90 mmol/L (96-108); Glomerular Filtration Rate 57; Glucose 97 mg/dL (70-105); Potassium 4.6 mmol/L (3.3-5.1); Sodium 131 mmol/L (133-145)
[2018-12-22 17:28] LABS: Estimated Average Glucose(eAG) 117 mg/dL; Hemoglobin A1C 5.7 % HGB (4.0-6.0)
[2018-12-22 18:06] LABS: Appearance,Urine CLEAR; Bacteria,Urine 0 /hpf (0); Bilirubin,Urine NEG (NEG); Color,Urine YELLOW; Culture Indicated,Urine YES; Glucose,Urine (UA) NEGATIVE (NEG); Ketones,Urine NEG (NEG); Leukocyte Esterase,Urine 75 /uL (NEG); Mucus,Urine FEW /hpf (0); Nitrate,Urine NEG (NEG); Protein,Urine NEG (NEG); Specific Gravity,Urine 1.018 (1.000-1.035); Urine Amorphous Crystals FEW /hpf (0); Urine Blood NEG mg/dL (<0.03); Urine Hyaline Cast 1 /lpf (0-2); Urine RBC 2 /hpf (0-1); Urine Squamous Epithelial Cell 3 /hpf (0-4); Urine Transitional Epi Cells 1 /hpf (0-2); Urine WBC 16 /hpf (0-4); Urobilinogen,Urine NEG (NEG)
[2018-12-29] MEDS ORDERED: oxyCODONE 10 MG TAB.ER.12H PO SCH (06:00)
[2018-12-29] MEDS ORDERED: PREGABALIN 150 MG CAPSULE PO SCH (06:00)
[2018-12-29] MEDS ORDERED: CELECOXIB 200 MG CAPSULE PO SCH (06:00)
[2018-12-29] MEDS ORDERED: ceFAZolin 2 GM in DEXTROSE 5% IN WATER 50 ML IV SCH (06:00)
[2018-12-29 06:46] LABS: Appearance,Urine CLEAR; Bacteria,Urine 0 /hpf (0); Bilirubin,Urine NEG (NEG); Color,Urine YELLOW; Culture Indicated,Urine NO; Glucose,Urine (UA) NEGATIVE (NEG); Ketones,Urine NEG (NEG); Leukocyte Esterase,Urine NEG /uL (NEG); Nitrate,Urine NEG (NEG); Protein,Urine 30 mg/dL (NEG); Specific Gravity,Urine 1.018 (1.000-1.035); Urine Blood NEG mg/dL (<0.03); Urine Hyaline Cast 1 /lpf (0-2); Urine RBC 1 /hpf (0-1); Urine Squamous Epithelial Cell 1 /hpf (0-4); Urine Transitional Epi Cells < 1 /hpf (0-2); Urine WBC 1 /hpf (0-4); Urobilinogen,Urine NEG (NEG)
[2018-12-29] MEDS ORDERED: fentaNYL 100 MCG/2 ML VIAL IV ONE (07:30)
[2018-12-29] MEDS ORDERED: ONDANSETRON 4 MG/2 ML VIAL IV ONE (07:30)
[2018-12-29] MEDS ORDERED: DEXAMETHASONE 10 MG/ML VIAL IV ONE (07:30)
[2018-12-29] MEDS ORDERED: SUCCINYLCHOLINE 20 MG/ML ML IV ONE (07:30)
[2018-12-29] MEDS ORDERED: PROPOFOL 200 MG/20 ML VIAL IV ONE (07:30)
[2018-12-29] MEDS ORDERED: LIDOCAINE HCL/PF 100 MG/5 ML SYRINGE IV ONE (07:30)
[2018-12-29] MEDS ORDERED: BUPIVACAINE W/EPI 0.5% 50 ML VIAL IJ ONE (08:25)
[2018-12-29] MEDS ORDERED: PROMETHAZINE 25 MG/ML VIAL IV PRN (08:55)
[2018-12-29] MEDS ORDERED: IPRATROPIUM/ALBUTEROL 3 ML AMPUL.NEB NEB PRN (08:55)
[2018-12-29] MEDS ORDERED: NALOXONE HCL 0.4 MG/ML VIAL IV PRN (08:55)
[2018-12-29] MEDS ORDERED: BENZOCAINE/MENTHOL 1 LOZENGE PO PRN ×2 (08:55→09:22)
[2018-12-29] MEDS ORDERED: diphenhydrAMINE 50 MG/ML VIAL IV PRN (08:55)
[2018-12-29] MEDS ORDERED: ONDANSETRON 4 MG/2 ML VIAL IV PRN ×2 (08:55→09:22)
[2018-12-29] MEDS ORDERED: HYDROmorphone 2 MG/ML VIAL IV PRN (08:55)
[2018-12-29] MEDS ORDERED: ACETAMINOPHEN 1,000 MG/100 ML BOTTLE IV ONE (08:55)
[2018-12-29] MEDS ORDERED: FLUMAZENIL 0.1 MG/ML ML IV PRN (08:55)
[2018-12-29] MEDS ORDERED: LACTATED RINGERS 250 ML IV PRN (08:55)
[2018-12-29] MEDS ORDERED: MEPERIDINE 25 MG/ML SYRINGE IV PRN (08:55)
[2018-12-29] MEDS ORDERED: LACTATED RINGERS 1,000 ML IV SCH (09:00)
[2018-12-29] MEDS ORDERED: MAGNESIUM HYDROXIDE 30 ML ORAL.SUSP PO PRN (09:22)
[2018-12-29] MEDS ORDERED: TRANEXAMIC ACID 1,000 MG/10 ML VIAL IV SCH (09:22)
[2018-12-29] MEDS ORDERED: FLEETS ADULT ENEMA PR PRN (09:22)
[2018-12-29] MEDS ORDERED: POLYETHYLENE GLYCOL 3350 17 GM PACKET PO PRN (09:22)
[2018-12-29] MEDS ORDERED: BISACODYL 10 MG SUPP.RECT PR PRN (09:22)
--- NOTE | 2018-12-29 09:22 | Brief Operative Note ---
Date of procedure: 12/29/18 Pre-op diagnosis: Right shoulder severe arthritis Post-op diagnosis: same Procedure: Right reverse total shoulder arthroplasty Grafts/Implants: Yes (Tornier 3 long stem, 6mm tray, +6 insert, 25 baseplate, 36 offset glenosphe) Anesthesia: GETA Findings: severe osteoporosis, very small glenoid Complications: other Complications Description: 12/29/18 09:21 glenoid fracture upon impaction of baseplate Surgeon: Theo Lin Cardiopulmonary Technologist: Julius Perea Estimated blood loss (cc): 100 Specimens Removed/Pathology: none sent Condition: stable Disposition: PACU
[2018-12-29] MEDS ORDERED: Fluticasone/Vilanterol [Breo Ellipta 100-25 Mcg Inhaler] INH PRN (09:31)
[2018-12-29] MEDS: fentaNYL 100 MCG/2 ML VIAL IV PRN ×2 (10:04→10:19)
[2018-12-29] MEDS ORDERED: METHOCARBAMOL 1,000 MG/10 ML VIAL IV ONE (10:16)
[2018-12-29] MEDS ORDERED: METHOCARBAMOL 1,000 MG/10 ML VIAL ONE (10:18)
--- NOTE | 2018-12-29 10:29 | XRay Report ---
CLINICAL INFORMATION: Postsurgical follow-up TECHNIQUE: Portable AP and axillary views of the right shoulder COMPARISON: Preoperative evaluation dated 09/28/1949 FINDINGS: Status post reverse right shoulder arthroplasty. Anatomic alignment demonstrated. There are surgical clips overlying the right shoulder. There is soft tissue post surgical gas IMPRESSION: Status post right reverse shoulder arthroplasty Interpreted and Authenticated by: Vik Pineda 12/29/18
[2018-12-29] MEDS: 0.9 % SODIUM CHLORIDE 1,000 ML IV SCH ×2 (10:50→20:33)
[2018-12-29] MEDS: 0.9 % SODIUM CHLORIDE 10 ML SYRINGE IV SCH ×2 (12:01→22:54)
--- NOTE | 2018-12-29 12:03 | Operative Note ---
DATE OF OPERATION: 12/29/2018 PREOPERATIVE DIAGNOSIS: Right shoulder severe rheumatoid arthritis. POSTOPERATIVE DIAGNOSIS: Right shoulder severe rheumatoid arthritis. PROCEDURE PERFORMED: Right reverse total shoulder arthroplasty placing a Tornier size 3 long humeral stem; a +6 baseplate with a +6 polyethylene insert on a 25 baseplate with a 36 mm, 2 mm inferior offset glenosphere. SURGEON: Theo Lin M.D. HOSPITALITY DIRECTOR: Jesse Perea PA-C. The PA's assistance was required for the safe and efficient completion of the entire case. This provider's expertise and technical skill were required throughout the case. The PA assisted with preoperative coordination, intraoperative retraction, wound closure, dressing and splint application, as well as postoperative documentation and care coordination. ANESTHESIA: General. DRAINS: None. SPECIMENS: Humeral head which was discarded. BLOOD LOSS: 150 mL. POSTOPERATIVE CONDITION: Stable. COMPLICATIONS: Glenoid fracture. FINDINGS AT SURGERY: She had a very small glenoid with poor bone quality. However, post-procedure showed what appeared to be very stable shoulder. PROCEDURE IN DETAIL: The patient had been seen preoperatively and informed consent had been obtained after discussion of risks and benefits of surgery. Risks include, but not limited to, bleeding; infection, possibly requiring implant removal and prolonged IV antibiotics; injury to nerves, blood vessels, other surrounding structures; anesthetic risks; incomplete or no resolution of symptoms; dislocation; fracture; possibility of needing further surgery. She understood and wished to proceed. Correct operative site was marked. The patient was taken to the operating room. General anesthesia induced. She was carefully positioned in the beach chair position and pressure points carefully padded. The right shoulder and upper extremity were then carefully prepped and draped in normal sterile fashion and then all skin surfaces were covered with Ioban. A standard deltopectoral incision was made with scalpel through skin and subcutaneous tissue, and hemostasis was obtained with Bovie cautery. Irrisept was irrigated and then blunt dissection was taken down onto the cephalic vein, and this was dissected lateral to the deltoid. The subdeltoid space was developed with blunt finger dissection and a Marcano deltoid retractor placed. A blue handle retractor was placed underneath the conjoined tendon. I opened the bicipital groove and rotator interval. The biceps was amputated. A curved osteotome was used to perform a lesser tuberosity osteotomy and a traction suture was placed around, and then we started trying to dislocate the humeral head. We released capsule around the inferior humeral head, and then once we had adequate exposure used the cut guide. We then made our humeral head cut. We then used the sounders up to a size 3. We then broached up to a size 3. There was minimal calcar planing necessary. We went ahead and placed a cut protector. I then exposed the glenoid, placing a Fukuda on the posterior glenoid. It was at this point we noticed the anterior and posterior glenoid basically had already fractured off, and there was just the main vertical central section. We went ahead and removed these small bone fragments and released capsule. I then placed a guide pin using the guide with a 10 degree cephalad tilt at the inferior margin. We then used the reamer. Bone was very sclerotic, and again due to the bone size being extremely small, we did not ream very far down. We then used the central peg reamer and then at that point we noticed we were already out through the anterior scapula. I drilled for the 6.5 screw. It was shorter than a 25, but we went ahead and tried a 25. However, there was no purchase with that screw, so we decided to go up to the extended peg. I was going to ream. However, the drill had already skived off the anterior scapula making the hole off center, and with no central guide pin we felt doing a larger reamer would compromise the bone anterior, so we just went ahead and opened and impacted the glenosphere and baseplate until it was fully seated. It did appear to have good press fit. However, when I viewed the anterior glenoid bone through the anterior hole of the baseplate, there was a crack in it. We went ahead and drilled and placed a superior and inferior locking screw. Anterior and posterior screws were left empty due to the lack of bone. We then chose a 36, 2 mm offset glenosphere with the offset placed inferiorly. We irrigated with Irrisept, after a minute pulse lavaged with saline, and then impacted the glenosphere. We then redislocated the proximal humerus. We removed the cut protector. We trialed with an offset baseplate placed superiorly. The +6 insert trial was trialed. This reduced too easily. We went up to a 9. This reduced better. However, we felt we probably could go a little bit tighter still, so we went ahead and removed trial implants. We opened a size 3 long humeral stem. We went with the thick baseplate +6 and then a +6 insert. This was assembled on the back table with the offset at the 12 o'clock position. I irrigated the joint and in the humeral canal with Irrisept, after a minute pulse lavaged with saline, and then impacted the stem. The shoulder reduced with good tension and was stable throughout. We irrigated Irrisept again, after a minute pulse lavaged. We then repaired the lesser tuberosity osteotomy with a #2 FiberWire. The biceps stump we amputated. We then closed the deltopectoral interval with a #1 Vicryl. A 2-0 Monocryl was used for subcutaneous and heidi for skin. Xeroform and sterile dressing were applied. Arm was placed in an abductor immobilizer. The patient was awakened, extubated, and transferred to recovery in stable condition. LILLIAN:leonardo Job ID: [id number] Doc ID: [id number] Theo Lin MD
[2018-12-29] MEDS: oxyCODONE/APAP 5/325MG TABLET PO PRN ×3 (14:51→22:55)
[2018-12-29] MEDS: ceFAZolin 1 GM VIAL IV SCH ×2 (15:08→22:55)
[2018-12-29] MEDS: oxyCODONE 10 MG TAB.ER.12H PO SCH (20:29)
[2018-12-29] MEDS: sulfaSALAzine 500 MG TABLET PO SCH (20:29)
[2018-12-29] MEDS: SULFAMETHOXAZOLE/TRIMETHOPRIM 1 TABLET PO SCH (20:29)
[2018-12-29] MEDS: BACLOFEN 10 MG TABLET PO SCH (20:29)
[2018-12-29] MEDS: CYCLOBENZAPRINE 10 MG TABLET PO SCH (20:29)
[2018-12-29] MEDS: DOCUSATE SODIUM 100 MG CAPSULE PO SCH (20:30)
[2018-12-29] MEDS ORDERED: DICLOFENAC 75 MG TABLET PO SCH (21:00)
[2018-12-29] MEDS ORDERED: rOPINIRole 1 MG TABLET PO SCH (21:00)
[2018-12-29] MEDS ORDERED: PREGABALIN 75 MG CAPSULE PO SCH (21:00)
[2018-12-29] MEDS ORDERED: SENNOSIDES 1 TABLET PO SCH (21:00)
[2018-12-30] MEDS: oxyCODONE/APAP 5/325MG TABLET PO PRN ×2 (03:19→07:19)
[2018-12-30 05:50] LABS: Hematocrit 37.5 % (36.0-48.0); Hemoglobin 12.5 g/dL (12.0-15.0)
[2018-12-30] MEDS ORDERED: LEVOTHYROXINE 88 MCG TABLET PO SCH (07:30)
[2018-12-30] MEDS: SULFAMETHOXAZOLE/TRIMETHOPRIM 1 TABLET PO SCH (08:07)
[2018-12-30] MEDS: oxyCODONE 10 MG TAB.ER.12H PO SCH (08:07)
[2018-12-30] MEDS: DOCUSATE SODIUM 100 MG CAPSULE PO SCH (08:08)
[2018-12-30] MEDS: BACLOFEN 10 MG TABLET PO SCH (08:09)
[2018-12-30] MEDS: CYCLOBENZAPRINE 10 MG TABLET PO SCH (08:09)
[2018-12-30] MEDS: sulfaSALAzine 500 MG TABLET PO SCH (08:11)
--- NOTE | 2018-12-30 08:36 | Discharge Summary ---
Providers - Providers Patient information: Note initiated : 12/30/18 at 8:33 am Service Date, if different from initiated Date: [] Patient: Soumya Montgomery 73 y/o F admitted on 12/29/18 for Right Reverse Total Shoulder Arthroplasty . Chief Complaint: [] Discharge date: 12/30/18 Hospitalization Hospital course: Pt was admitted for a R reverse total shoulder arthroplasty. Pt underwent the procedure on the day of admission. Pt spent one night on the floor for IV pain meds, IV abx, and PT. Pt discharged post-op day one. Will hold off on PT for 6 weeks. . Discharge diagnosis: R shoulder OA Exam - Exam Clean and dry: Yes Weight bearing status: none Ortho Discharge - TSA - Patient Instructions Diet: Regular Diet Activity: activity as tolerated Total Shoulder Protocol: Leave immobilizer in place except for bathing and ROM. Abduction pillow. Continue to wear sling until seen by physician. [place]man Pendulum : These exercises use momentum produced by your body to move your shoulder joint. Bend your knees and shift your weight to your front leg, then back, allowing your arm to swing in the same directions. Using the same technique, alternately shift your weight between your right and left legs, allowing your arm to swing from side to side. These exercises are also performed in counterclockwise and clockwise circular motions. Typically these exercises are performed several times per day, for a set number repetitions or minutes, such as 20 times in a row or 5 minutes at a time. Dressing Care: May shower in 2 days - Follow Up Plan Follow Up Appointments: Julius Perea PA-C [Physician Time Lock Expert] - 01/13/19 1:00 pm Disposition: Home, Self-Care Prognosis: Good Rehab Potential: Good Overall status at discharge: patient is progressing back to baseline - Orders For Discharge Prescriptions: HYDROcodone/ACETAMINOPHEN [[place] 10-325 Tablet] 1 - 2 each PO Q4 #75 tab Pending Studies Resuscitation Status Full Code Diet Consistent Carbohydrate Diet Start ThuDec 30 927 Amlodipine Besylate (Norvasc) 10 mg PO QAM [facility] Last Admin: 12/30/18 08:07 Dose: 10 mg Documented by: NAB1 Aspirin (Aspirin) 81 mg CHEWED DAILY [facility] Last Admin: 12/30/18 08:07 Dose: 81 mg Documented by: NAB1 Baclofen (Lioresal) 10 mg PO BID [facility] Last Admin: 12/30/18 08:09 Dose: 10 mg Documented by: Admin: 12/29/18 20:29 Dose: 10 mg Documented by: SALLY Cyclobenzaprine HCl (Flexeril) 10 mg PO BID [facility] Last Admin: 12/30/18 08:09 Dose: 10 mg Documented by: Admin: 12/29/18 20:29 Dose: 10 mg Documented by: SALLY Diclofenac Sodium (Voltaren) 75 mg PO BID [facility] Last Admin: 12/29/18 20:31 Dose: Not Given Documented by: SALLY Docusate Sodium (Colace) 100 mg PO BID [facility] Last Admin: 12/30/18 08:08 Dose: 100 mg Documented by: Admin: 12/29/18 20:30 Dose: 100 mg Documented by: SALLY Duloxetine HCl (Cymbalta) 90 mg PO QDAY [facility] Last Admin: 12/30/18 08:09 Dose: 90 mg Documented by: JENNI Fish Oil (Fish Oil) 1,000 mg PO DAILY [facility] Last Admin: 12/30/18 08:10 Dose: 1,000 mg Documented by: JENNI Iron Carb/Multivit/[place]/Folic Acid (Multivitamin W/Minerals) 1 tab PO DAILY [facility] Last Admin: 12/30/18 08:07 Dose: 1 tab Documented by: JENNI Levothyroxine Sodium (Synthroid) 88 mcg PO QAMAC [facility] Last Admin: 12/30/18 07:25 Dose: 88 mcg Documented by: JENNI Losartan Potassium (Cozaar) 100 mg PO DAILY [facility] Last Admin: 12/30/18 08:09 Dose: 100 mg Documented by: JENNI Morphine Sulfate (Morphine) 0 mg IV Q1HP PRN PRN Reason: PAIN LEVEL > 6 Last Admin: 12/29/18 14:51 Dose: 4 mg Documented by: Admin: 12/29/18 12:01 Dose: 2 mg Documented by: Admin: 12/29/18 11:20 Dose: 4 mg Documented by: CASTILLO Oxycodone HCl (Oxycontin) 10 mg PO BID [facility] Last Admin: 12/30/18 08:07 Dose: 10 mg Documented by: Admin: 12/29/18 20:29 Dose: 10 mg Documented by: SALLY Oxycodone/Acetaminophen (Percocet 5-325 Mg) 0 tab PO Q4HP PRN PRN Reason: PAIN LEVEL 3-6 Last Admin: 12/30/18 07:19 Dose: 2 tab Documented by: Admin: 12/30/18 03:19 Dose: 2 tab Documented by: Admin: 12/29/18 22:55 Dose: 2 tab Documented by: Admin: 12/29/18 18:50 Dose: 2 tab Documented by: Admin: 12/29/18 14:51 Dose: 2 tab Documented by: CASTILLO Pregabalin (Lyrica) 75 mg PO [facility] Last Admin: 12/29/18 20:29 Dose: 75 mg Documented by: SALLY [facility] [place] Admin: 12/30/18 08:07 Dose: 150 mg Documented by: JENNI Ropinirole HCl (Requip) 1 mg PO [facility] Last Admin: 12/29/18 20:29 Dose: 1 mg Documented by: SALLY Senna (Senokot) 2 tab PO [facility] Last Admin: 12/29/18 20:29 Dose: 2 tab Documented by: SALLY Sodium Chloride (Saline Flush) 10 ml IV Q8 [facility] Last Admin: 12/29/18 22:54 Dose: 10 ml Documented by: Admin: 12/29/18 12:01 Dose: Not Given Documented by: CASTILLO Sulfasalazine (Sulfasalazine) 500 mg PO BID [facility] Last Admin: 12/30/18 08:11 Dose: Not Given Documented by: Admin: 12/29/18 20:29 Dose: 500 mg Documented by: SALLY Trimethoprim/Sulfamethoxazole (Bactrim Ds) 1 tab PO BID [facility]; Protocol Last Admin: 12/30/18 08:07 Dose: 1 tab Documented by: Admin: 12/29/18 20:29 Dose: 1 tab Documented by: SALLY Shift Summary 12/30/18 03:37 Shift Summary by Saida Aranda A&O x4. Pt has taken 2 tabs percocet Q4H. Pt has an immobilizer to the R shoulder. Dressing has some slight shadow drainage but is intact. Pt gets up with a cane and SBA to the bathroom. VSS on RA. No BM this shift. IV to the L AC is SL and patent. Pt sleeps with CPAP but is on RA during the day. Pt has slept most of the night. Her L forearm is bruised from many attempts at IV starts yesterday. Initialized on 12/30/18 03:37 - END OF NOTE
[2018-12-30] MEDS ORDERED: ASPIRIN 81 MG TAB.CHEW CHEWED SCH (09:00)
[2018-12-30] MEDS ORDERED: buPROPion 150 MG TAB.XL.24H PO SCH (09:00)
[2018-12-30] MEDS ORDERED: MULTIVIT,THER IRON,CA,FA & MIN 1 TABLET PO SCH (09:00)
[2018-12-30] MEDS ORDERED: amLODIPine 10 MG TABLET PO SCH (09:00)
[2018-12-30] MEDS ORDERED: MAG OX PO SCH (09:00)
[2018-12-30] MEDS ORDERED: GINGER ROOT 250 MG PO SCH (09:00)
[2018-12-30] MEDS ORDERED: ZINC SULF PO SCH (09:00)
[2018-12-30] MEDS ORDERED: CALCIUM CARB PO SCH (09:00)
[2018-12-30] MEDS ORDERED: DULoxetine 30 MG CAPSULE PO SCH (09:00)
[2018-12-30] MEDS ORDERED: FISH OIL 1,000 MG CAPSULE PO SCH (09:00)
[2018-12-30] MEDS ORDERED: PREGABALIN 150 MG CAPSULE PO SCH (09:00)
[2018-12-30] MEDS ORDERED: LOSARTAN 50 MG TABLET PO SCH (09:00)
== END 2018-12-30 11:20 | disposition home or self-care (01) | DRG 483 ==
LOC: MEDSUR 12-29 05:00
PROVIDERS: ADMIT Orthopaedic Surgery; ATTEND Orthopaedic Surgery